=== PATIENT | male | born 1955 | race Caucasian/White ===

== ENCOUNTER 2017-08-24 15:10 | Observation (INO) ==
[2017-08-24] MEDS ORDERED: ASPIRIN 325 MG TABLET PO STA (16:21)
[2017-08-24] MEDS ORDERED: ALUM/MAG/SIMETH/LIDO VISC 1:1 30 ML BOTTLE PO STA (16:21)
[2017-08-24 16:39] LABS: Basophils # 0.1 10*3/uL (0.0-0.2); Basophils % 0.6 % (0.0-0.8); Eosinophils # 0.1 10*3/uL (0.0-0.87); Eosinophils % 0.9 % (0.00-10.9); Hematocrit 38.9 VOL% (42.0-52.0); Hemoglobin 14.4 GM/DL (14.0-18.0); Immature Granulocytes % 0.2 %; Immature Granulocytes Absolute 0.02 #; Lymphocytes # 2.3 10*3/uL (1.4-4.0); Lymphocytes % 22.9 % (21.2-54.2); Mean Corpuscular Hemoglobin 35 PG (27-34); Mean Platelet Volume 10.2 FL (9.6-12.0); Monocytes # 0.7 10*3/uL (0.11-0.8); Monocytes % 7.4 % (1.7-12.7); Neutrophils # 6.7 10*3/uL (1.4-7.4); Platelet Count 260 T/CUMM (130-400); Red Blood Count 4.14 MC/CUMM (3.8-5.5); Red Cell Distribution Width 11.9 % (9.3-17.3); White Blood Count 9.8 T/CUMM (4-12)
[2017-08-24 16:48] LABS: PT Patient Result 10.1 SECS; Partial Thromboplastin Time 24.7 SECS (0-40)
[2017-08-24] MEDS ORDERED: ALUM/MAG/SIMETH/LIDO VISC 1:1 30 ML BOTTLE PO ONE (16:53)
[2017-08-24] MEDS ORDERED: ASPIRIN 325 MG TABLET ONE (16:53)
[2017-08-24] MEDS ORDERED: ONDANSETRON 4 MG/2 ML VIAL ONE (16:59)
[2017-08-24 17:11] LABS: Albumin 3.6 G/DL (3.4-5.0); Bilirubin,Total 0.4 MG/DL (0.2-1.0); Osmolality,Calculated 277.4 MOS/KG (273-304); Total Protein 7.4 G/DL (6.4-8.3)
[2017-08-24] MEDS ORDERED: ENOXAPARIN 80 MG/0.8 ML SYRINGE SUBCUT STA (19:53)
[2017-08-24] MEDS ORDERED: ENOXAPARIN 80 MG/0.8 ML SYRINGE SUBCUT ONE (20:06)
[2017-08-24] MEDS ORDERED: MAGNESIUM SULF RIDER 4 GM in PREMIX 1 EACH IV PRN (21:09)
[2017-08-24] MEDS ORDERED: MAGNESIUM SULF RIDER 2 GM in PREMIX 1 EACH IV PRN (21:09)
[2017-08-24] MEDS ORDERED: MORPHINE 2 MG/1 ML SYRINGE IV PRN (21:09)
[2017-08-24] MEDS ORDERED: ONDANSETRON 4 MG/2 ML VIAL IV PRN (21:09)
[2017-08-24] MEDS: SODIUM CHLORIDE 0.45% 1,000 ML IV SCH (22:07)
[2017-08-25] MEDS: SODIUM CHLORIDE 0.45% 1,000 ML IV SCH ×5 (06:17→23:12)
[2017-08-25] MEDS ORDERED: diphenhydrAMINE CAP 25 MG CAPSULE PO ONE (06:56)
[2017-08-25] MEDS ORDERED: DIAZEPAM 5 MG TABLET PO ONE (06:56)
[2017-08-25] MEDS ORDERED: LIDOCAINE 1% 20 ML VIAL ONE (07:14)
[2017-08-25] MEDS ORDERED: VERAPAMIL 5 MG/2 ML VIAL ONE (07:14)
[2017-08-25] MEDS ORDERED: NITROGLYCERIN DRIP 50 MG/250 ML BOTTLE IV ONE (07:14)
[2017-08-25] MEDS ORDERED: HEPARIN/NACL 0.9% 2 UNITS/ML 1,000 ML IV ONE (07:14)
[2017-08-25] MEDS ORDERED: fentaNYL 100 MCG/2 ML VIAL ONE (07:20)
[2017-08-25] MEDS ORDERED: MIDAZOLAM 2 MG/2 ML VIAL ONE (07:20)
[2017-08-25] MEDS: PANTOPRAZOLE 40 MG TABLET PO SCH ×2 (07:25→08:24)
[2017-08-25] MEDS: ASPIRIN EC 81 MG TABLET PO SCH ×2 (07:25→08:24)
[2017-08-25] MEDS ORDERED: ENOXAPARIN 60 MG/0.6 ML SYRINGE ONE (08:02)
[2017-08-25] MEDS ORDERED: TICAGRELOR 90 MG TABLET ONE (08:29)
[2017-08-25] MEDS ORDERED: ZALEPLON 5 MG CAPSULE PO PRN (08:46)
[2017-08-25] MEDS ORDERED: ACETAMINOPHEN 325 MG TABLET PO PRN (08:46)
[2017-08-25] MEDS ORDERED: chlordiazePOXIDE 10 MG CAPSULE PO PRN (08:46)
[2017-08-25] MEDS: TICAGRELOR 90 MG TABLET PO SCH ×2 (09:11→20:59)
[2017-08-25] MEDS: ESCITALOPRAM 10 MG TABLET PO SCH (09:17)
[2017-08-25] MEDS: LOSARTAN 25 MG TABLET PO SCH (09:17)
[2017-08-25] MEDS: DEXTROAMPHETAMINE PO SCH (09:27)
[2017-08-25] MEDS: AMPHETAMINE PO SCH (09:27)
[2017-08-25 10:53] LABS: Risk Ratio 4.86; VLDL CHOLESTEROL 22.6 MG/DL
[2017-08-25] MEDS ORDERED: hydrALAZINE 20 MG/1 ML VIAL IV PRN (11:46)
[2017-08-25] MEDS ORDERED: hydroCHLOROthiazide 12.5 MG CAPSULE PO SCH (12:00)
[2017-08-25] MEDS ORDERED: ATORVASTATIN 40 MG TABLET PO SCH (21:00)
[2017-08-26] MEDS: SODIUM CHLORIDE 0.45% 1,000 ML IV SCH (05:40)
[2017-08-26 06:08] LABS: Basophils % 0.5 % (0.0-0.8); Eosinophils # 0.1 10*3/uL (0.0-0.87); Hematocrit 29.8 VOL% (42.0-52.0); Hemoglobin 10.6 GM/DL (14.0-18.0); Immature Granulocytes % 0.7 %; Immature Granulocytes Absolute 0.04 #; Lymphocytes # 1.8 10*3/uL (1.4-4.0); Lymphocytes % 29.6 % (21.2-54.2); Mean Corpuscular HGB Conc 35.6 GM/DL (32-36); Mean Corpuscular Hemoglobin 34 PG (27-34); Mean Corpuscular Volume 96.8 FL (87-102); Mean Platelet Volume 10.1 FL (9.6-12.0); Monocytes # 0.5 10*3/uL (0.11-0.8); Monocytes % 8.3 % (1.7-12.7); Neutrophils # 3.5 10*3/uL (1.4-7.4); Neutrophils % 58.9 % (38.7-73.9); Platelet Count 181 T/CUMM (130-400); Red Blood Count 3.08 MC/CUMM (3.8-5.5); Red Cell Distribution Width 12.1 % (9.3-17.3); White Blood Count 5.9 T/CUMM (4-12)
[2017-08-26 06:39] LABS: Calcium 8.3 MG/DL (8.5-10.1); Osmolality,Calculated 280.1 MOS/KG (273-304)
[2017-08-26 07:48] VITALS: BP 144/92
[2017-08-26] MEDS: LOSARTAN 25 MG TABLET PO SCH (08:28)
[2017-08-26] MEDS: AMPHETAMINE PO SCH (08:28)
[2017-08-26] MEDS: ESCITALOPRAM 10 MG TABLET PO SCH (08:28)
[2017-08-26] MEDS: TICAGRELOR 90 MG TABLET PO SCH (08:28)
[2017-08-26] MEDS: DEXTROAMPHETAMINE PO SCH (08:28)
[2017-08-26] MEDS: ASPIRIN EC 81 MG TABLET PO SCH (08:28)
[2017-08-26] MEDS: PANTOPRAZOLE 40 MG TABLET PO SCH (08:28)
== END 2017-08-26 11:12 | disposition home or self-care (01) ==
LOC: N.ED 15:10 → N.EDINP 15:10 → N.TELES 20:24
PROVIDERS: ADMIT Internal Medicine Cardiovascular Disease; ATTEND Internal Medicine Cardiovascular Disease
PROC: CLCCHCL (ICD-10-PCS; 2017-08-25 07:45)